=== PATIENT | female | born 1980 | race Caucasian/White ===

== ENCOUNTER 2017-04-30 17:39 | Emergency (ER) | payer OTHER ==
[~2017-04-30] VITALS: Ht 162.5 cm; Wt 95.3 kg
[~2017-04-30 17:39] MED LIST: AMOXIL500 MG PO; CORTISPORIN SUS10 ML OT; MOTRIN800 MG PO; PEN-V500 MG PO; SYNTHROID0.025 MG PO
[2017-04-30] MEDS ORDERED: 'PARAFON FORTE500 M1 PO (18:28)
[2017-04-30] MEDS ORDERED: NAPROSYN500 MG PO (18:28)
== END 2017-04-30 19:41 | disposition home or self-care (01) ==
LOC: ED 17:39
DX: S13.9XXA Sprain of joints and ligaments of unspecified parts of neck, initial encounter (principal); S39.012A Strain of muscle, fascia and tendon of lower back, initial encounter; R03.0 Elevated blood-pressure reading, without diagnosis of hypertension; F17.200 Nicotine dependence, unspecified, uncomplicated; V89.2XXA Person injured in unspecified motor-vehicle accident, traffic, initial encounter; Y93.89 Activity, other specified; Y92.413 State road as the place of occurrence of the external cause; Y99.9 Unspecified external cause status

== ENCOUNTER 2019-08-20 20:06 | Emergency (ER) | payer OTHER ==
[~2019-08-20] VITALS: Ht 162.5 cm; Wt 95.3 kg
--- NOTE | ~2019-08-20 | EKG ---
[place], [place] ELECTROCARDIOGRAM REPORT NAME: MARCELINO JURADO UNIT #: [id number] ROOM: DOCTOR: EPIPHANY DRAFT REPORT BIRTHDATE: [birth year] [facility] Test Date: 2019-08-20 Test Time: 23:04:08 Pat Name: MARCELINO JURADO Department: Room: Gender: F Vp Packaging: : 1980 Requested By: SCOTT SALEEM Order Number: [id number] Reading MD: Vannessa Perez Measurements Intervals [place] Rate: 56 P: 30 [place]: 160 QRS: -6 QRSD: 93 T: 23 QT: 433 QTc: 418 Interpretive Statements Sinus rhythm Electronically Signed On 08-23-2019 11:56:38 PST by Vannessa Perez CM:EKGRPT:ELECTROCARDIOGRAM REPORT [id number] SCOTT CHOPRA DRAFT REPORT SCOTT SALEEM DO
--- NOTE | ~2019-08-20 | EKG ---
[place], [place] ELECTROCARDIOGRAM REPORT NAME: MARCELINO JURADO UNIT #: [id number] ROOM: DOCTOR: EPIPHANY DRAFT REPORT BIRTHDATE: [birth year] [facility] Test Date: 2019-08-20 Test Time: 20:06:51 Pat Name: MARCELINO JURADO Department: Room: Gender: F Lawn Service Manager: : 1980 Requested By: SCOTT SALEEM Order Number: [id number] Reading MD: Vannessa Perez Measurements Intervals [place] Rate: 99 P: 63 [place]: 143 QRS: 16 QRSD: 90 T: 31 QT: 363 QTc: 466 Interpretive Statements Sinus rhythm Electronically Signed On 08-23-2019 11:56:30 PST by Vannessa Perez CM:EKGRPT:ELECTROCARDIOGRAM REPORT [id number] SCOTT CHOPRA DRAFT REPORT SCOTT SALEEM DO
[~2019-08-20 20:06] MED LIST changes: +'PARAFON FORTE500 M1 PO; +NAPROSYN500 MG PO
[2019-08-20 20:21] LABS: BASO % 0.2 % (0.0-1.0); EOS # 0.5 10*3/uL (0.0-0.4); EOS % 3.7 % (1.0-4.0); HEMATOCRIT 46.2 % (37.0-47.0); HEMOGLOBIN 15.5 g/dl (12.0-16.0); LYMPH # 3.6 10*3/uL (1.3-4.4); LYMPH % 26.2 % (27.0-41.0); MEAN CELL VOLUME 90.6 fl (81.0-99.0); MEAN CORPUSCULAR HGB 30.4 pg (27.0-31.0); MEAN CORPUSCULAR HGB CONC 33.5 g/dl (33.0-37.0); MEAN PLATELET VOLUME 9.5 fl (9.6-12.3); MONO # 0.7 10*3/uL (0.1-1.0); MONO % 5.1 % (3.0-9.0); NEUT # 8.9 10*3/uL (2.3-7.9); NEUT % 64.3 % (47.0-73.0); PLATELET COUNT AUTOMATED 352 10*3/uL (130-400); RED CELL DISTRI WIDTH 12.3 % (0-14.5); WHITE BLOOD COUNT 13.8 10*3/uL (4.8-10.8)
[2019-08-20 20:39] LABS: ACT PARTIAL THROMBO TIME 26.6 SECONDS (20.0-32.1); ALKALINE PHOSPHATASE 136 U/L (45-117); BUN 5 mg/dl (7-24); CHLORIDE 106 mmol/L (98-107); CREATININE 1.03 mg/dL (0.55-1.02); INTERNATIONAL NORM RATIO 0.9 (2.0-3.5); POTASSIUM 2.9 mmol/L (3.5-5.1); SGOT/AST 35 IU/L (3-35); SGPT/ALT 65 U/L (12-78); SODIUM 139 mmol/L (136-145); TOTAL PROTEIN 7.7 gm/dL (6.4-8.2)
[2019-08-20 20:49] LABS: TROPONIN I < 0.015 ng/ml (<0.045)
[2019-08-20 22:21] LABS: BILIRUBIN NEGATIVE (NEGATIVE); BLOOD 3+ (NEGATIVE); CLARITY SL CLOUDY (CLEAR); GLUCOSE NEGATIVE (NEGATIVE); KETONE NEGATIVE (NEGATIVE); LEUKO ESTERASE TRACE (NEGATIVE); NITRITE NEGATIVE (NEGATIVE); SPECIFIC GRAVITY <= 1.005 (1.005-1.030); UROBILINOGEN 0.2 E.U./dl (0.2-1.0)
[2019-08-20 22:28] LABS: COLOR YELLOW (YELLOW)
[2019-08-20 22:30] LABS: RBC 16-20 rbc/hpf (0-2)
[2019-08-20 22:31] LABS: BACTERIA 1+
== END 2019-08-21 02:08 | disposition home or self-care (01) ==
LOC: ED 20:06
PROVIDERS: Emergency Medicine
DX: K52.9 Noninfective gastroenteritis and colitis, unspecified (principal); E87.6 Hypokalemia; R07.89 Other chest pain; E07.9 Disorder of thyroid, unspecified; Z79.899 Other long term (current) drug therapy

== ENCOUNTER 2019-09-24 00:43 | Emergency (ER) | payer OTHER ==
[~2019-09-24] VITALS: Ht 162.5 cm; Wt 97.5 kg
[2019-09-24 02:03] LABS: BASO % 0.4 % (0.0-1.0); EOS # 0.5 10*3/uL (0.0-0.4); EOS % 6.7 % (1.0-4.0); HEMATOCRIT 42.5 % (37.0-47.0); HEMOGLOBIN 14.2 g/dl (12.0-16.0); LYMPH # 2.5 10*3/uL (1.3-4.4); LYMPH % 35.6 % (27.0-41.0); MEAN CELL VOLUME 91.6 fl (81.0-99.0); MEAN CORPUSCULAR HGB 30.6 pg (27.0-31.0); MEAN CORPUSCULAR HGB CONC 33.4 g/dl (33.0-37.0); MEAN PLATELET VOLUME 9.8 fl (9.6-12.3); MONO # 0.4 10*3/uL (0.1-1.0); MONO % 5.3 % (3.0-9.0); NEUT # 3.6 10*3/uL (2.3-7.9); NEUT % 51.7 % (47.0-73.0); PLATELET COUNT AUTOMATED 278 10*3/uL (130-400); RED BLOOD COUNT 4.64 10*6/uL (4.10-5.10); RED CELL DISTRI WIDTH 13.4 % (0-14.5)
[2019-09-24 02:24] LABS: ALBUMIN 4.1 gm/dl (3.1-4.5); ALKALINE PHOSPHATASE 117 U/L (45-117); BUN 8 mg/dl (7-24); CHLORIDE 108 mmol/L (98-107); CREATININE 1.14 mg/dL (0.55-1.02); POTASSIUM 3.7 mmol/L (3.5-5.1); SGOT/AST 54 IU/L (3-35); SGPT/ALT 84 U/L (12-78); SODIUM 141 mmol/L (136-145); TOTAL PROTEIN 7.5 gm/dL (6.4-8.2)
== END 2019-09-24 02:47 | disposition home or self-care (01) ==
LOC: ED 00:43
PROVIDERS: Emergency Medicine
DX: R53.1 Weakness (principal); H93.13 Tinnitus, bilateral; R07.89 Other chest pain; E07.9 Disorder of thyroid, unspecified; Z79.899 Other long term (current) drug therapy

== ENCOUNTER 2022-03-01 09:35 | Emergency (ER) | payer OTHER | END 2022-03-01 11:00 | disposition home or self-care (01) | LOC: ED 09:35 | DX: S69.92XA Unspecified injury of left wrist, hand and finger(s), initial encounter (principal); W21.03XA Struck by baseball, initial encounter; Y93.89 Activity, other specified; Y92.89 Other specified places as the place of occurrence of the external cause; Y99.8 Other external cause status ==

== ENCOUNTER → 2022-03-03 | Outpatient (CLI) | payer OTHER | LOC: MAMMO 03:31 | PROVIDERS: ATTEND Internal Medicine | DX: Z12.31 Encounter for screening mammogram for malignant neoplasm of breast (principal) ==

== ENCOUNTER → 2022-04-02 | Outpatient (CLI) | payer OTHER | END | disposition home or self-care (01) | LOC: US 00:10 | PROVIDERS: ATTEND Internal Medicine Nephrology | DX: R74.8 Abnormal levels of other serum enzymes (principal); K76.0 Fatty (change of) liver, not elsewhere classified ==

== ENCOUNTER → 2024-02-29 | Outpatient (CLI) | payer OTHER ==
[~2024-02-29] MED LIST changes: +GADOTERATE MEGLUMINE 10 MMOL/20 ML VIAL IV ONE
== END | disposition home or self-care (01) ==
LOC: MRI 00:34
PROVIDERS: ATTEND Internal Medicine Nephrology
DX: G50.0 Trigeminal neuralgia (principal); R51.9 Headache, unspecified

== ENCOUNTER → 2024-03-13 | Outpatient (CLI) | payer OTHER ==
[~2024-03-13] MED LIST changes: -GADOTERATE MEGLUMINE 10 MMOL/20 ML VIAL IV ONE
== END | disposition home or self-care (01) ==
LOC: US 12:43
PROVIDERS: ATTEND Internal Medicine Nephrology
DX: I65.23 Occlusion and stenosis of bilateral carotid arteries (principal); F33.9 Major depressive disorder, recurrent, unspecified; R20.0 Anesthesia of skin

== ENCOUNTER → 2024-03-28 | Outpatient (CLI) | payer OTHER | END | disposition home or self-care (01) | LOC: MAMMO 15:42 | PROVIDERS: ATTEND Internal Medicine Nephrology | DX: Z12.31 Encounter for screening mammogram for malignant neoplasm of breast (principal) ==

== ENCOUNTER → 2025-02-22 | Outpatient (CLI) | payer OTHER | END | disposition home or self-care (01) | LOC: RAD 11:44 | PROVIDERS: ATTEND Internal Medicine Nephrology | DX: M47.816 Spondylosis without myelopathy or radiculopathy, lumbar region (principal); M54.50 Low back pain, unspecified ==